=== PATIENT | female | born 1965 | race Caucasian/White ===

== ENCOUNTER 2021-08-09 10:32 | Day surgery (SDC) | payer OTHER, SELFPAY ==
[2021-08-09] VITALS (7 sets, daily range): BP systolic 115–144; BP diastolic 70–89; PULSE 63–86; RESP 16–18; TEMP 36.1–37.3; O2SAT 95–99; BMI 42.8
[2021-08-09] MEDS: Cefazolin 2 GM in 0.9% Normal Saline 100 ML IV (10:39)
--- NOTE | 2021-08-09 11:23 | PCM.DC ---
Discharge Instructions Diet Discharge Diet: No restrictions Activity Discharge Activity: Return to Normal Activity and May Shower Dressing / Incision Call your doctor if you observe: Fever of 101 or Higher, Inability to urinate and Inability to have a bowel movement Follow Up Care Please Follow Up With: Zenaida Mueller MD When: call for appt Test Results: Test results from this visit will be discussed in further detail at your follow-up appointment, if applicable. Discharge Plan Admission Attending Provider: Zenaida Mueller Primary Care Provider: Arturo Steele Discharge Orders/Prescriptions Prescriptions: New oxycodone-acetaminophen [oxycodone-acetaminophen] 1 TABLET tablet 2 tab PO Q8H PRN PRN (Reason: Pain) 7 Days Qty: 20 RF: 0 Continued hydrochlorothiazide 25 MG tablet 25 mg PO DAILY RF: 0 lisinopril 40 MG tablet 40 mg PO DAILY RF: 0 ondansetron HCl 4 mg Tablet 4 mg PO Q8H PRN (Reason: Nausea) RF: 0 ketorolac 10 mg Tablet 10 mg PO Q8H PRN (Reason: Pain) RF: 0 oxycodone-acetaminophen 5-325 mg Tablet 1 tab PO Q6H PRN (Reason: Pain) RF: 0 tamsulosin 0.4 mg Capsule 0.4 mg PO DAILY RF: 0 biotin 10,000 mcg Capsule 10,000 mcg PO DAILY RF: 0 metronidazole 0.75 % Cream 1 applic TOPICAL BID RF: 0 pravastatin 20 mg Tablet 20 mg PO DAILY RF: 0 Zyrtec 10 mg Capsule 10 mg PO DAILY RF: 0 Farxiga 10 mg Tablet 10 mg PO DAILY RF: 0 Referrals / Follow Up: Arturo Steele MD [Primary Care Provider] - Disposition Disposition (needs filled in before D/C Order can be placed): Home, Self Care
--- NOTE | 2021-08-09 11:25 | PCM.OPRPT ---
Problems Associated Problem List Diagnoses (1) Hydronephrosis: (2) Left ureteral calculus: Report of Operation Date of Procedure: 08/09/21 Pre-Operative Diagnosis: Left ureteral calculus with hydronephrosis Post-Operative Diagnosis: Same Surgery/Procedure Performed:: Cystoscopy, left ureteroscopy, holmium laser lithotripsy, stone basket extraction, left ureteral stent insertion Surgeon: Zenaida Mueller Type of Anesthesia: General Description of Procedure: The patient is a 56-year-old female who was diagnosed with a left ureteral calculus and hydronephrosis approximately 1 week ago in the emergency room. She now presents for definitive surgical intervention. Informed consent was obtained. The patient was taken to the operating room and placed on the operating room table. Anesthesia monitored the head, neck, airway, IV access and vital signs throughout the case. Once anesthesia was appropriate ministered the patient was placed into dorsal lithotomy position was prepped and draped in usual sterile fashion. The cystoscope was inserted through the urethra under direct visualization into the urinary bladder. The bladder mucosa was visualized in its entirety and found to be without evidence of mass, ulceration, erythema or foreign body. Both orifices were located in the correct anatomic position on the trigone. The left ureteral orifice was intubated with 8.035 Glidewire followed by a second Glidewire. These were visualized within the renal pelvis on fluoroscopy. The flexible ureteroscope was then passed over one of the wires into the left ureter. The stone was identified. The 270 ?m laser fiber was used to break the stone into small pieces which were removed with a stone basket. At the conclusion of the case, a 6 x 26 JJ stent was placed over the remaining Glidewire. Good curling was achieved in the renal pelvis as well as the urinary bladder. At this time the patient's bladder was emptied and the case was terminated. The patient tolerated the procedure well and was taken to the recovery room in good condition. There were no complications during this procedure. Grafts/Implants Used: 6 x 26 JJ stent Complications None Admit VTE Documentation VTE Present on Admission: Yes VTE Mechan Device Prophylaxis: SCD's VTE Pharm Prophylaxis ordered?: No Reason prophylaxis not ordered:: Treatment Not Indicated
[2021-08-09] MEDS: Lactated Ringers 1,000 ML 999 ML IV (11:27)
[2021-08-09 11:35] LABS: Bedside Glucose 165 mg/dL (74-106)
--- NOTE | 2021-08-09 12:15 | CALC_PTH ---
PATIENT: PATRIZIA HEATH [place]: [facility] [place][id number] AGE/SX: 56/F ROOM: RE08/09/[address]: Dr. Zenaida Mueller MD : [id number] BED: DIS: 08/09/2021 SPEC #: [id number] RECD: 08/09/21 13:29 STATUS: GARRETT ODEN #: [id number] SELINA: 08/09/21 12:[address]: Zenaida Mueller DEPT: SURGICAL PATHOLOGY RECD BY: Nan Rogers ENTERED: 08/12/21 10:26 SP TYPE: Calculi OTHR DR: Dr. Arturo Steele MD Tissues: CALCULI Procedures: Surgery Specimen Level I HEADER OPERATION: Cysto, ureteroscopy, laser, stent PRE-OP DIAGNOSIS: Left ureteral calculi, hydronephrosis TISSUE SUBMITTED: Left ureteral calculi GROSS DIAGNOSIS Left ureteral calculi, removal: Fragments of unremarkable calculi (gross diagnosis only). AM:xavier 08/13/2021 COMMENT If chemical analysis is requested on this specimen, please notify the laboratory. Case has been reviewed in consultation with Dr. Carbajal who concurs with the above diagnosis. IDC:SJ GROSS DESCRIPTION Received without fixative labeled with the patient's name and designated left ureteral calculi. The specimen consists of three irregular fragments of dark chao calculi measuring in aggregate 0.5 x 0.2 x 0.1 cm. The entire specimen is saved if stone analysis is requested. / AM:xavier 08/12/2021 CPT: 39022
[2021-08-09] MEDS: Lactated Ringers 1,000 ML 30 ML IV (13:00)
[2021-08-09 13:21] LABS: Bedside Glucose 137 mg/dL (74-106)
[2021-08-09] MEDS: Acetaminophen 325 MG Tablet PO (14:30)
[2021-08-09] MEDS: oxyCODONE 5 MG Tablet PO (14:30)
== END 2021-08-09 23:59 | disposition home or self-care (01) ==
LOC: SDC 10:36 → AC 10:38
PROVIDERS: PCP Family Medicine; Referring Provider Urology; Visit Provider Urology
PROC: 0TJ98ZZ Inspection of Ureter, Via Natural or Artificial Opening Endoscopic (ICD-10-PCS; CPT 52352; principal; 2021-08-09 12:05)
DX: N13.2 Hydronephrosis with renal and ureteral calculous obstruction (principal); E11.9 Type 2 diabetes mellitus without complications; J45.909 Unspecified asthma, uncomplicated; Z79.899 Other long term (current) drug therapy; F41.9 Anxiety disorder, unspecified; K76.0 Fatty (change of) liver, not elsewhere classified; E78.00 Pure hypercholesterolemia, unspecified; Z85.828 Personal history of other malignant neoplasm of skin; I10 Essential (primary) hypertension
CPT/HCPCS: 52356; 00873; 76000; 82962; 87426; 88300; J7120; C2617

== ENCOUNTER 2021-08-15 14:30 | Outpatient (CLI) | payer OTHER, SELFPAY ==
--- NOTE | 2021-08-15 14:36 | CT_ITS ---
STUDY: CT ABDOMEN AND PELVIS WITHOUT CONTRAST REASON FOR EXAM: Female, 56 years old. FLANK PAIN. Known kidney stones. RADIATION DOSAGE (If Supplied By Facility): CTDIvol = ( 23.62 ) mGy, DLP = ( 1256.84 ) mGycm TECHNIQUE: Transaxial images were obtained from the dome of the diaphragm to the symphysis pubis without oral contrast, and without intravenous contrast. Sagittal and coronal images were reconstructed. Individualized dose optimization techniques were used for this CT. COMPARISON: None. FINDINGS: The visualized lung bases are unremarkable. The visualized portions of the heart are within normal limits. Normal liver. There are surgical clips in the gallbladder fossa consistent with a prior cholecystectomy. Normal spleen. Normal pancreas. Normal bilateral adrenal glands. There is a 5.4 mm calculus in the midpole calyx of the right kidney. There is a mild degree of left hydronephrosis with left perinephric and periureteric stranding due to a 3 mm x 5.6 mm calculus in the proximal portion of the left ureter. A 5.2 mm nonobstructive calculus in the lower pole calyx of the left kidney. There is a small hiatal hernia. Normal small intestine. Normal colon. The appendix is visualized and appears normal. There is scattered atherosclerotic calcification of the abdominal aorta, without a demonstrated aneurysm. Normal inferior vena cava. Normal retroperitoneum. Normal urinary bladder. Normal abdominal wall. There are degenerative changes of the visualized lumbar spine. CT/Abdomen/Pelvis without Cont IMPRESSION: 3 mm x 5.6 mm calculus in the proximal left ureter causing mild degree of left hydronephrosis and perinephric and periureteric stranding. Nonobstructive bilateral intrarenal calculi. Electronically Signed: Kevyn Chase MD at 15:09 EDT ,
== END 2021-08-15 23:59 | disposition home or self-care (01) ==
LOC: CT 14:32
PROVIDERS: PCP Family Medicine; Visit Provider Urology
DX: N20.0 Calculus of kidney (principal); R10.9 Unspecified abdominal pain
CPT/HCPCS: 74176

== ENCOUNTER 2021-08-27 08:47 | Day surgery (SDC) | payer OTHER, SELFPAY ==
[2021-08-27] VITALS (8 sets, daily range): BP systolic 120–142; BP diastolic 66–90; PULSE 57–84; RESP 16–18; TEMP 36.2–36.6; O2SAT 96–99; BMI 42.4
[2021-08-27 09:40] LABS: Bedside Glucose 173 mg/dL (74-106)
[2021-08-27] MEDS: Lactated Ringers 1,000 ML 15 ML IV ×2 (09:54→12:20)
--- NOTE | 2021-08-27 11:30 | PCM.OPRPT ---
Problems Associated Problem List Diagnoses (1) Bilateral renal stones: (2) Left ureteral calculus: Report of Operation Date of Procedure: 08/27/21 Pre-Operative Diagnosis: Bilateral renal calculus, left ureteral calculus Post-Operative Diagnosis: Bilateral renal stones, passed left ureteral calculus Surgery/Procedure Performed:: Cystoscopy with left retrograde pyelogram, left ureteroscopy, laser lithotripsy with stone basket extraction and left ureteral stent insertion, right renal extracorporal shockwave lithotripsy Surgeon: Zenaida Mueller Type of Anesthesia: General Description of Procedure: The patient is a 56-year-old female who presents for right extracorporal shockwave lithotripsy of a kidney stone. She has been passing a left ureteral stone and still has a left renal calculus in place as well. She was consented for management of the left ureteral calculus. She was taken to the operating room placed on the operating room table. Anesthesia monitored the head, neck, airway, IV access and vital signs throughout the case. Once anesthesia was appropriately administered the patient was placed into dorsal lithotomy position was prepped and draped in usual sterile fashion. The cystoscope was inserted through the urethra under direct visualization into the urinary bladder which was normal. There was no foreign body within the urinary bladder. The left ureteral orifice was gently intubated with an 8 Georgian cone-tip catheter and contrast was injected in retrograde fashion. Under fluoroscopic visualization there is a question of a filling defect in the proximal left ureter. Using a flexible ureteroscope and a 0.035 glide safety wire, a left ureteroscopy revealed mucous at the area of a left ureteral narrowing. There was no ureteral calculus identified. The scope was inserted all the way up to the kidney where a stone was located grasped with a basket, and brought into the ureteral orifice. It was then lasered into small pieces which were removed. These pieces were too small for further evaluation. At this time, when no further fragments were seen, the safety wire was used for placement of a 6 Georgian 26 cm JJ stent which curled well in the renal pelvis as well as the urinary bladder. At this time the patient was taken out of dorsolithotomy position and the right renal stone was shocked with 3000 shocks. It appeared to be well fragmented at the conclusion of the case. The patient was then awakened and taken to the recovery room in good condition. There were no complications during this procedure. Grafts/Implants Used: Left 6 x 26 JJ stent Complications None Admit VTE Documentation VTE Present on Admission: No VTE Mechan Device Prophylaxis: SCD's VTE Pharm Prophylaxis ordered?: No Reason prophylaxis not ordered:: Treatment Not Indicated
--- NOTE | 2021-08-27 11:34 | PCM.DC ---
Discharge Instructions Diet Discharge Diet: No restrictions Activity Discharge Activity: Return to Normal Activity May resume sexual activity in: No Restrictions Dressing / Incision Call your doctor if you observe: Fever of 101 or Higher, Inability to urinate and Inability to have a bowel movement Follow Up Care Please Follow Up With: Zenaida Mueller MD When: Thursday for stent removal Test Results: Test results from this visit will be discussed in further detail at your follow-up appointment, if applicable. Discharge Plan Admission Attending Provider: Zenaida Mueller Primary Care Provider: Arturo Steele Discharge Orders/Prescriptions Prescriptions: New phenazopyridine [Pyridium] 200 MG tablet 200 mg PO TID PRN PRN (Reason: Bladder Spasms) 7 Days Qty: 30 RF: 0 cephalexin [cephalexin] 500 MG capsule 500 mg PO Q12 3 Days Qty: 6 RF: 0 oxycodone-acetaminophen 10-325 mg tablet 2 tab PO Q8H PRN (Reason: pain) 3 Days Qty: 14 RF: 0 Continued hydrochlorothiazide 25 MG tablet 25 mg PO DAILY RF: 0 lisinopril 40 MG tablet 40 mg PO DAILY RF: 0 ondansetron HCl 4 mg Tablet 4 mg PO Q8H PRN (Reason: Nausea) RF: 0 ketorolac 10 mg Tablet 10 mg PO Q8H PRN (Reason: Pain) RF: 0 oxycodone-acetaminophen 5-325 mg Tablet 1 tab PO Q6H PRN (Reason: Pain) RF: 0 tamsulosin 0.4 mg Capsule 0.4 mg PO DAILY RF: 0 biotin 10,000 mcg Capsule 10,000 mcg PO DAILY RF: 0 metronidazole 0.75 % Cream 1 applic TOPICAL BID RF: 0 pravastatin 20 mg Tablet 20 mg PO DAILY RF: 0 Zyrtec 10 mg Capsule 10 mg PO DAILY RF: 0 Farxiga 10 mg Tablet 10 mg PO DAILY RF: 0 oxycodone-acetaminophen 1 TABLET tablet 2 tab PO Q8H PRN PRN (Reason: Pain) 7 Days Qty: 20 RF: 0 Referrals / Follow Up: Arturo Steele MD [Primary Care Provider] - Disposition Disposition (needs filled in before D/C Order can be placed): Home, Self Care
[2021-08-27] MEDS: Acetaminophen 325 MG Tablet 650 MG PO (13:47)
[2021-08-27] MEDS: oxyCODONE 5 MG Tablet 10 MG PO (13:47)
== END 2021-08-27 23:59 | disposition home or self-care (01) ==
LOC: SDC 08:49 → AC 08:54
PROVIDERS: PCP Family Medicine; Visit Provider Urology
PROC: (CPT 50590; principal; 2021-08-27 10:00)
DX: N13.2 Hydronephrosis with renal and ureteral calculous obstruction (principal); E11.9 Type 2 diabetes mellitus without complications; J45.909 Unspecified asthma, uncomplicated; F41.9 Anxiety disorder, unspecified; K76.0 Fatty (change of) liver, not elsewhere classified; E78.00 Pure hypercholesterolemia, unspecified; Z85.828 Personal history of other malignant neoplasm of skin; I10 Essential (primary) hypertension; Z79.899 Other long term (current) drug therapy
CPT/HCPCS: 52356; 82962; 87426; J7120; C2617; J2405

== ENCOUNTER 2021-08-29 14:22 | Observation (INO) | payer OTHER, SELFPAY ==
[2021-08-29 14:22] VITALS: BP 152/61; PULSE 64; RESP 16; TEMP 36.4; O2SAT 98; BMI 41.5
--- NOTE | 2021-08-29 15:03 | EX.ED.DYSGE1 ---
HPI History of Present Illness Chief Complaint: Flank Pain Detail of Chief Complaint: Right flank pain with nausea Informant: patient Onset/Context/Timing Onset: Yesterday Context: Sudden Onset Timing: Continuous Quality: Pain Location: Right flank Current Severity: Severe Maximum Severity: Severe Worsened by: Nothing Relieved by: Nothing Associated Symptoms Associated Symptoms: Nausea and chills when the pain got worse Narrative Narrative: Patient is a 56-year-old woman with history of hypertension, hyperlipidemia and diabetes who presents with right flank pain. She underwent lithotripsy on the right and had a ureteral stent placed on the left. She presents with severe left right flank pain without radiation. She does report nausea without vomiting. She does report urgency no dysuria or hematuria. She denies fever. She denies HEENT symptoms. She denies cardiac or respiratory symptoms. She denies history of renal disease due to her diabetes. She states the pain has not improved even though she has maximized her dose of Percocet. She states she was sent in by Dr. Zenaida Shah. Patient had 6 to 8 ounces of water at 1400. She had a sip of water at 1500. She has not had any to eat since last evening. Prior similar symptoms: Yes Recent Illness/Hospitalization: Yes (Surgery August 27) [facility] Medical History Alcohol use Anxiety Arthritis Asthma Back pain Bilateral renal stones Cancer Diabetes Dietary restriction Fatty liver Headache Heartburn High cholesterol History of deviated nasal septum History of edema History of irregular heartbeat Hx of basal cell carcinoma Hydronephrosis Hypertension Left ureteral calculus Low iron Non-smoker Shortness of breath on exertion Syncope Wears glasses Home Medications hydrochlorothiazide 25 mg PO DAILY 04/10/16 [History Last Taken 08/26/21] lisinopril 40 mg PO DAILY 04/10/16 [History Last Taken 08/27/21] Farxiga 10 mg PO DAILY 08/08/21 [History Last Taken 08/26/21] Zyrtec 10 mg PO DAILY 08/08/21 [History Last Taken 08/26/21] biotin 10,000 mcg PO DAILY 08/08/21 [History Last Taken 08/26/21] ketorolac 10 mg PO Q8H PRN 08/08/21 [History Last Taken 08/26/21] metronidazole 1 applic TOPICAL BID 08/08/21 [History Last Taken 08/26/21] ondansetron HCl 4 mg PO Q8H PRN 08/08/21 [History Last Taken 08/26/21] oxycodone-acetaminophen 1 tab PO Q6H PRN 08/08/21 [History Last Taken 08/26/21] pravastatin 20 mg PO DAILY 08/08/21 [History Last Taken 08/26/21] tamsulosin 0.4 mg PO DAILY 08/08/21 [History Last Taken 08/26/21] oxycodone-acetaminophen 2 tab PO Q8H PRN PRN 7 Days #20 tab 08/09/21 [Rx Last Taken 08/26/21] cephalexin 500 mg PO Q12 3 Days #6 capsule 08/27/21 [Rx Last Taken Unknown] oxycodone-acetaminophen 2 tab PO Q8H PRN 3 Days #14 tab 08/27/21 [Rx Last Taken Unknown] phenazopyridine [Pyridium] 200 mg PO TID PRN PRN 7 Days #30 tab 08/27/21 [Rx Last Taken Unknown] Allergy/AdvReac Type Severity Reaction Status Date / Time Penicillins Allergy Rash Verified 08/29/21 14:48 adhesive tape AdvReac Sensitivity, Verified 08/29/21 14:48 Redness, Sore Surgical History Hx of breast implant Hx of cystoscopy Hx of hysterectomy, total Hx of resection of small bowel Social History (Updated 08/29/21 @ 15:[address] Angel Parr MD) household members: spouse Smoking Status: Never smoker substance use type: does not use ROS ROS ED Constitutional Constitutional ED: Reports chills; Denies fever(s), subjective or sweats Eyes Eyes: Denies blurry vision or change in vision ENT ENT ED: Denies ear pain, rhinorrhea or sore throat Cardiovascular Cardiovascular: Denies chest pain or palpitations Respiratory/Chest Respiratory/Chest: Denies cough, dyspnea or dyspnea on exertion Gastrointestinal Gastrointestinal: Reports nausea; Denies abdominal pain, constipation, diarrhea or vomiting Genitourinary Genitourinary ED: Denies dysuria, hematuria or urinary frequency Musculoskeletal Musculoskeletal: Reports back pain; Denies arthralgias, myalgias or neck pain Integumentary Denies Abrasions or rash Neurologic Neurologic: Denies paresthesias or weakness Endocrine Endocrinology: Denies polydipsia, polyphagia or polyuria EXAM Physical Exam Const Vital Signs: 08/29/21 14:22 Temperature 97.6 F L Temperature Source Temporal Pulse Rate 64 Respiratory Rate 16 Blood Pressure 152/61 H Blood Pressure Mean 91 Pulse Ox 98 Oxygen Delivery Method Room Air Patient appears uncomfortable. Positive well nourished, well developed and obese General Appearance ED: well developed and pallor; Negative for cyanotic, diaphoretic or NAD Nutritional Appearance: obese HEENT Reports moist mucous membranes Negative for trauma or tenderness Eyes PERRL and EOMs intact bilaterally General Eye ED: Negative for pale conjunctiva or scleral icterus Neck no lymphadenopathy, supple and no JVD Chest Wall inspection of chest normal and palpation of chest normal Resp normal respiratory effort and clear to auscultation bilaterally Effort and Inspection: Negative for pain with movement Cardio regular rate, regular rhythm, S1 normal heart sound, S2 normal heart sound and no murmurs GI normal to inspection, nondistended, normoactive bowel sounds, non-tender and non-distended Auscultation: normoactive bowel sounds Palpation: soft Back/Spine no CVA tenderness Cervical Spine: Negative for cervical spine tenderness Thoracic Spine / Upper Back: paraspinal muscle tenderness; Negative for thoracic spinal tenderness Lumbar Spine / Lower Back: Negative for lumbar spinal tenderness Extremity normal to inspection General Extremety ED: Negative for edema or tenderness General Extremity: Negative for edema Neuro oriented x3 and CN's II-XII intact bilaterally Sensorium / Orientation: alert Psych mental status grossly normal Skin no rashes or lesions noted, no wounds and skin turgor normal General Skin Exam: pallor; Negative for jaundice MDM MDM MDM Narrative Medical decision making narrative: Patient with flank pain status post lithotripsy. Suspect obstructing ureteral stone. Patient was medicated with Toradol and morphine for pain and Zofran for nausea. Since she has not had a recent electrolyte panel with a BUN and creatinine one was ordered as well as CBC since she reported chills. Call was placed to Dr. Zenaida Richter. Patient states the medicine she received took the edge off. She still having discomfort. CAT scan is remarkable for a 2 mm mid right ureteral stone with hydroureter hydronephrosis. Lab Data Attestation: I reviewed the patient's lab results. Lab results narrative: White count is slightly elevated with no bandemia. This is insignificant. This could be due to pain. Basic metabolic panel is remarkable for glucose of 180. CO2 anion gap is normal. There is mild hypokalemia with potassium of 3.1. Labs: Laboratory Results - last 24 hr 08/29/21 08/29/21 08/29/21 14:50 14:50 15:55 WBC 11.8 H RBC 4.90 Hgb 13.9 Hct 42.7 MCV 87.1 MCH 28.4 MCHC 32.6 RDW Std Deviation 40.6 RDW Coeff of Gerald 12.9 Plt Count 179 MPV 12.3 H Immature Gran % (Auto) 0.800 Neut % (Auto) 70.7 H Lymph % (Auto) 18.8 L [place] % (Auto) 7.7 Eos % (Auto) 1.4 Baso % (Auto) 0.6 Absolute Neuts (auto) 8.3 H Absolute Lymphs (auto) 2.21 Nucleated RBC % 0 Sodium 139 Potassium 3.1 L Chloride 105 Carbon Dioxide 28.0 Anion Gap 6 BUN 21 H Creatinine 1.01 Estim Creat Clear Calc 61.92 Est GFR (MDRD) Af Amer 73 Est GFR (MDRD) Non-Af 61 BUN/Creatinine Ratio 20.8 H Glucose 180 H Calcium 8.9 Urine Color Magali Urine Clarity Clear Urine pH 5.0 Ur Specific [place] 1.015 Urine Protein 30 H Urine Glucose (UA) 250 H Urine Ketones 50 H Urine Occult Blood 250 H Urine Nitrite Positive H Urine Bilirubin 3 H Urine Urobilinogen 4 H Ur Leukocyte Esterase 100 H Radiography Diagnostic Testing: Clinical Impression(s) from Imaging Studies Abdomen/Pelvis CT 08/29/21 15:26 IMPRESSION: 1. New mild right hydronephrosis. 2 mm mid right ureter calculus, new. 2. Left ureteric stent. Resolution of left hydronephrosis. Electronically Signed: Jevon Bass MD ([place]) at 15:56 EDT , Discharge Plan Triage Chief Complaint: Flank Pain ED Provider: Angel Parr Dx/Rx/DC Orders Clinical Impression: Hydronephrosis concurrent with and due to calculi of kidney and ureter, Bilateral renal stones Prescriptions: No Action hydrochlorothiazide 25 MG tablet 25 mg PO DAILY RF: 0 lisinopril 40 MG tablet 40 mg PO DAILY RF: 0 ondansetron HCl 4 mg Tablet 4 mg PO Q8H PRN (Reason: Nausea) RF: 0 ketorolac 10 mg Tablet 10 mg PO Q8H PRN (Reason: Pain) RF: 0 oxycodone-acetaminophen 5-325 mg Tablet 1 tab PO Q6H PRN (Reason: Pain) RF: 0 tamsulosin 0.4 mg Capsule 0.4 mg PO DAILY RF: 0 biotin 10,000 mcg Capsule 10,000 mcg PO DAILY RF: 0 metronidazole 0.75 % Cream 1 applic TOPICAL BID RF: 0 pravastatin 20 mg Tablet 20 mg PO DAILY RF: 0 Zyrtec 10 mg Capsule 10 mg PO DAILY RF: 0 Farxiga 10 mg Tablet 10 mg PO DAILY RF: 0 oxycodone-acetaminophen 1 TABLET tablet 2 tab PO Q8H PRN PRN (Reason: Pain) 7 Days Qty: 20 RF: 0 phenazopyridine [Pyridium] 200 MG tablet 200 mg PO TID PRN PRN (Reason: Bladder Spasms) 7 Days Qty: 30 RF: 0 cephalexin [cephalexin] 500 MG capsule 500 mg PO Q12 3 Days Qty: 6 RF: 0 oxycodone-acetaminophen 10-325 mg tablet 2 tab PO Q8H PRN (Reason: pain) 3 Days Qty: 14 RF: 0 Primary Care Provider: Arturo Steele Referrals: Arturo Steele MD [Primary Care Provider] - Disposition Disposition: Acute Care [facility]
[2021-08-29] MEDS: Ondansetron 4 MG/2 ML Vial IV ×2 (15:15→17:52)
[2021-08-29] MEDS: Ketorolac 15 MG/ML Vial IV (15:15)
[2021-08-29] MEDS: Morphine 4 MG/ML Syringe IV ×3 (15:16→17:52)
[2021-08-29] MEDS: 0.9% Normal Saline 1,000 ML 250 ML IV (15:20)
--- NOTE | 2021-08-29 15:26 | CT_ITS ---
STUDY: CT ABDOMEN AND PELVIS WITHOUT CONTRAST REASON FOR EXAM: Female, 56 years old. Right flank pain RADIATION DOSAGE (If Supplied By Facility): CTDIvol = ( 23.65 ) mGy, DLP = ( 1276.51 ) mGycm TECHNIQUE: Transaxial images were obtained from the dome of the diaphragm to the symphysis pubis without oral contrast, and without intravenous contrast. Sagittal and coronal images were reconstructed. Individualized dose optimization techniques were used for this CT. COMPARISON: 08/15/2021 FINDINGS: Left breast implant partially visualized. The visualized portions of the heart are within normal limits. Normal liver. There are surgical clips in the gallbladder fossa consistent with a prior cholecystectomy. Normal spleen. Normal pancreas. Normal bilateral adrenal glands. 2 calculi of the right collecting system on image 72 of series 2. Mild right hydronephrosis with a 2 mm calculus of the right mid ureter on image 101 of series 2 (L5 level). Left ureter stent has been placed in satisfactory position. Small left renal calculi again demonstrated. Normal visualized stomach. Normal small intestine. Normal colon. There is non-visualization of the appendix. Normal abdominal aorta. Normal inferior vena cava. Normal retroperitoneum. Small amount of air in the urinary bladder. No bladder wall thickening. There is absence of the uterus consistent with a prior hysterectomy. Normal abdominal wall. Normal osseous structures. CT/Abdomen/Pelvis without Cont IMPRESSION: 1. New mild right hydronephrosis. 2 mm mid right ureter calculus, new. 2. Left ureteric stent. Resolution of left hydronephrosis. Electronically Signed: Jevon Bass MD ([place]) at 15:56 EDT ,
[2021-08-29 15:30] LABS: Absolute Lymphocyte Count 2.21 X10^3/uL (0.83-4.51); Absolute Neutrophil Count 8.3 X10^3/uL (2.0-7.7); Basophil# 0.07 X10^3/uL; Basophil% 0.6 % (0-1); Eosinophil# 0.17 X10^3/uL; Eosinophils% 1.4 % (0-5); Hematocrit 42.7 % (37-47); Hemoglobin 13.9 g/dL (12.0-15.0); Lymphocyte # 2.21 X10^3/ul (0.83-4.51); Lymphocyte % 18.8 % (19-41); Mean Corp Hgb Conc 32.6 g/dL (32-36); Mean Corpuscular Hgb 28.4 pg (27.0-32.0); Mean Corpuscular Volume 87.1 fL (81-99); Mean Platelet Vol. 12.3 fl (6.2-12.0); Monocyte# 0.91 X10^3/uL; Monocyte% 7.7 % (0-10); NRBC Flagged by Analyzer 0 % (0-5); Neutrophil % 70.7 % (47-70); Platelet Count 179 K/mm3 (150-450); RBC Distribution Width CV 12.9 % (11.6-14.6); RBC Distribution Width SD 40.6 fl (35.1-43.9); White Blood Count 11.8 K/mm3 (4.4-11.0)
[2021-08-29 15:49] LABS: Anion Gap 6 (5-15); BUN 21 mg/dL (7-18); BUN/Creat Ratio 20.8 RATIO (10-20); Calcium,Total 8.9 mg/dL (8.5-10.1); Chloride 105 mmol/L (98-107); Creatinine, Serum 1.01 mg/dL (0.55-1.02); EST Glomerular Filtration Rate 61 mL/min (>60); Est Glom Filt Rate - Afr Amer 73 mL/min (>60); Estimated Creatinine Clearance 61.92 ml/min; Glucose 180 mg/dL (74-106); Potassium 3.1 mmol/L (3.5-5.1); Sodium Level 139 mmol/L (136-145)
[2021-08-29 16:08] LABS: Mucous, Urine 0 SEEN /hpf (<or=2+)
[2021-08-29 16:09] LABS: Color, Urine Amber (Yellow); Glucose, Dipstick 250 mg/dl (Normal); Ketone-Dipstick 50 mg/dl (Negative); Leukocyte Esterase-Dipstick 100 /ul (Negative); Nitrite-Dipstick Positive (Negative); Occult Blood-Urine 250 /ul (Negative); Protein-Dipstick 30 mg/dl (Negative); Specific Gravity, Urine 1.015 (1.002-1.030); Urine Clarity Clear (Clear); Urine Urobilinogen 4 mg/dl (Normal)
[2021-08-29 16:10] LABS: Urine Bilirubin Dipstick 3 mg/dL (Negative)
[2021-08-29 16:17] LABS: White Blood Cells 10-25 SEEN /hpf (0-5)
[2021-08-29 16:18] LABS: Red Blood Cells-Urine 50-100 SEEN /hpf (0-5); Squamous Epithelial Cells - UA 0-5 SEEN /hpf (5-10)
[2021-08-29 16:19] VITALS: BP 147/71; PULSE 73; RESP 16; TEMP 36.6; O2SAT 98
[2021-08-29 16:21] LABS: Bacteria 1+ /hpf (None Seen); Fine Granular Cast- Urine 0-5 SEEN /lpf (0-5); Hyaline Cast 0-5 SEEN /lpf (0-5)
[2021-08-29 17:11] VITALS: BMI 42.7
[2021-08-29 17:14] VITALS: BP 143/81; PULSE 76; RESP 18; TEMP 36.8; O2SAT 95
[2021-08-29 18:06] LABS: Bedside Glucose 157 mg/dL (74-106)
[2021-08-29] MEDS: Ceftriaxone 1 GM/50 ML BAG IV (19:07)
[2021-08-29] MEDS: Ketorolac 30 MG/ML Syringe IV (21:34)
[2021-08-29] MEDS: Lactated Ringers 1,000 ML 125 ML IV (21:36)
[2021-08-29] MEDS: Docusate Sodium 100 MG Capsule PO (21:40)
[2021-08-29 23:00] VITALS: BP 100/66; PULSE 64; RESP 16; TEMP 36.9; O2SAT 95
[2021-08-29 23:11] VITALS: RESP 16
[2021-08-30 05:00] VITALS: BP 131/92; PULSE 78; RESP 16; TEMP 36.6
[2021-08-30 05:56] LABS: Absolute Lymphocyte Count 3.05 X10^3/uL (0.83-4.51); Absolute Neutrophil Count 3.2 X10^3/uL (2.0-7.7); Basophil# 0.05 X10^3/uL; Basophil% 0.7 % (0-1); Eosinophil# 0.35 X10^3/uL; Eosinophils% 4.9 % (0-5); Hematocrit 38.1 % (37-47); Hemoglobin 12.4 g/dL (12.0-15.0); Lymphocyte # 3.05 X10^3/ul (0.83-4.51); Lymphocyte % 42.4 % (19-41); Mean Corp Hgb Conc 32.5 g/dL (32-36); Mean Corpuscular Hgb 28.1 pg (27.0-32.0); Mean Corpuscular Volume 86.2 fL (81-99); Mean Platelet Vol. 12.2 fl (6.2-12.0); Monocyte# 0.56 X10^3/uL; Monocyte% 7.8 % (0-10); NRBC Flagged by Analyzer 0 % (0-5); Neutrophil # 3.16 X10^3/uL (2.7-7.7); Neutrophil % 43.8 % (47-70); Platelet Count 167 K/mm3 (150-450); RBC Distribution Width CV 12.9 % (11.6-14.6); Red Blood Count 4.42 M/mm3 (4.2-5.4); White Blood Count 7.2 K/mm3 (4.4-11.0)
[2021-08-30 06:21] LABS: Anion Gap 5 (5-15); BUN 20 mg/dL (7-18); BUN/Creat Ratio 33.1 RATIO (10-20); Calcium,Total 8.5 mg/dL (8.5-10.1); Chloride 106 mmol/L (98-107); EST Glomerular Filtration Rate 110 mL/min (>60); Est Glom Filt Rate - Afr Amer 133 mL/min (>60); Estimated Creatinine Clearance 104.24 ml/min; Glucose 133 mg/dL (74-106); Potassium 3.2 mmol/L (3.5-5.1); Sodium Level 139 mmol/L (136-145)
--- NOTE | 2021-08-30 08:01 | PCM.DC ---
Discharge Instructions Diet Discharge Diet: No restrictions Activity Discharge Activity: Return to Normal Activity Dressing / Incision Call your doctor if you observe: Fever of 101 or Higher, Inability to urinate and Inability to have a bowel movement Follow Up Care Please Follow Up With: Zenadia Mueller MD When: today in the office for stent removal Test Results: Test results from this visit will be discussed in further detail at your follow-up appointment, if applicable. Discharge Plan Admission Admit Date/Time: 08/29/21 16:39 Attending Provider: Zenaida Mueller Primary Care Provider: Arturo Steele Discharge Orders/Prescriptions Prescriptions: No Action hydrochlorothiazide 25 MG tablet 25 mg PO DAILY RF: 0 lisinopril 40 MG tablet 40 mg PO DAILY RF: 0 ondansetron HCl 4 mg Tablet 4 mg PO Q8H PRN (Reason: Nausea) RF: 0 biotin 10,000 mcg Capsule 10,000 mcg PO DAILY RF: 0 metronidazole 0.75 % Cream 1 applic TOPICAL BID RF: 0 pravastatin 20 mg Tablet 20 mg PO DAILY RF: 0 Zyrtec 10 mg Capsule 10 mg PO DAILY RF: 0 Farxiga 10 mg Tablet 10 mg PO DAILY RF: 0 phenazopyridine [Pyridium] 200 MG tablet 200 mg PO TID PRN PRN (Reason: Bladder Spasms) 7 Days Qty: 30 RF: 0 cephalexin [cephalexin] 500 MG capsule 500 mg PO Q12 3 Days Qty: 6 RF: 0 oxycodone-acetaminophen 10-325 mg tablet 1.5 tab PO Q6H PRN PRN (Reason: pain) RF: 0 Referrals / Follow Up: Arturo Steele MD [Primary Care Provider] - Disposition Disposition (needs filled in before D/C Order can be placed): Home, Self Care
--- NOTE | 2021-08-30 08:04 | HP.PCM_ITS ---
HPI - General General Date of Admission: 08/29/21 HPI Narrative PATRIZIA HEATH, is a 56 F who presents with right flank pain after extracorporeal shockwave lithotripsy. No fever or chills. [facility]LY [facility] Medical History Alcohol use Anxiety Arthritis Asthma Back pain Bilateral renal stones Cancer Diabetes Dietary restriction Fatty liver Headache Heartburn High cholesterol History of deviated nasal septum History of edema History of irregular heartbeat Hx of basal cell carcinoma Hydronephrosis Hypertension Left ureteral calculus Low iron Non-smoker Shortness of breath on exertion Syncope Wears glasses Home Medications hydrochlorothiazide 25 mg PO DAILY 04/10/16 [History Last Taken 08/29/21] lisinopril 40 mg PO DAILY 04/10/16 [History Last Taken 08/29/21] Farxiga 10 mg PO DAILY 08/08/21 [History Last Taken 08/29/21] Zyrtec 10 mg PO DAILY 08/08/21 [History Last Taken 08/29/21] biotin 10,000 mcg PO DAILY 08/08/21 [History Last Taken 08/29/21] metronidazole 1 applic TOPICAL BID 08/08/21 [History Last Taken 08/29/21] ondansetron HCl 4 mg PO Q8H PRN 08/08/21 [History Last Taken 08/29/21] pravastatin 20 mg PO DAILY 08/08/21 [History Last Taken 08/29/21] cephalexin 500 mg PO Q12 3 Days #6 capsule 08/27/21 [Rx Last Taken 08/29/21] phenazopyridine [Pyridium] 200 mg PO TID PRN PRN 7 Days #30 tab 08/27/21 [Rx Last Taken 08/29/21] oxycodone-acetaminophen 1.5 tab PO Q6H PRN PRN 08/29/21 [History Last Taken Unknown] Allergy/AdvReac Type Severity Reaction Status Date / Time Penicillins Allergy Rash Verified 08/29/21 14:48 adhesive tape AdvReac Sensitivity, Verified 08/29/21 14:48 Redness, Sore Surgical History Hx of breast implant Hx of cystoscopy Hx of hysterectomy, total Hx of resection of small bowel S/P hysterectomy Social History household members: spouse Smoking Status: Never smoker substance use type: does not use ROS Constitutional Constitutional: Reports systems reviewed and no addt'l complaints, except as documented Eyes Eyes: Reports systems reviewed and no addt'l complaints, except as documented ENT HEENT: Reports systems reviewed and no addt'l complaints, except as documented Cardiovascular Cardiovascular: Reports systems reviewed and no addt'l complaints, except as documented Respiratory/Chest Respiratory/Chest: Reports systems reviewed and no addt'l complaints, except as documented Gastrointestinal Gastrointestinal: Reports abdominal pain and nausea Genitourinary Genitourinary: Reports flank pain Musculoskeletal Musculoskeletal: Reports systems reviewed and no addt'l complaints, except as documented Integumentary Integumentary: Reports systems reviewed and no addt'l complaints, except as documented Neurologic Neurologic: Reports systems reviewed and no addt'l complaints, except as documented Psychiatric Psychiatric: Reports systems reviewed and no addt'l complaints, except as documented Vital Signs Vital Signs Vital Signs: 08/29/21 14:22 08/29/21 16:19 08/29/21 17:14 Temperature 97.6 F L 98 F 98.2 F Temperature Source Temporal Temporal Oral Pulse Rate 64 73 76 Pulse Strength Respiratory Rate 16 16 18 Respiratory Effort Respiratory Depth Respiratory Pattern Blood Pressure 152/61 H 147/71 H 143/81 H Blood Pressure Mean 91 96 101 Blood Pressure Source Monitor Blood Pressure Position Semi-Fowlers Blood Pressure Location Right Forearm Pulse Ox 98 98 95 Oxygen Delivery Method Room Air Room Air Room Air 08/29/21 17:44 08/29/21 22:00 08/29/21 23:00 Temperature 98.4 F Temperature Source Oral Pulse Rate 64 Pulse Strength Normal (2+) Respiratory Rate 16 Respiratory Effort Normal Respiratory Depth Normal Respiratory Pattern Normal Blood Pressure 100/66 Blood Pressure Mean 77 Blood Pressure Source Monitor Blood Pressure Position Semi-Fowlers Blood Pressure Location Right Forearm Pulse Ox 95 Oxygen Delivery Method Room Air Room Air 08/29/21 23:11 08/30/21 05:00 Temperature 97.8 F Temperature Source Oral Pulse Rate 78 Pulse Strength Respiratory Rate 16 16 Respiratory Effort Normal Normal Respiratory Depth Respiratory Pattern Blood Pressure 131/92 H Blood Pressure Mean 105 Blood Pressure Source Monitor Blood Pressure Position Semi-Fowlers Blood Pressure Location Right Forearm Pulse Ox Oxygen Delivery Method Room Air Room Air Weight Weight: 123.7 kg Body Mass Index (BMI) 42.7 Physical Exam Const alert, oriented x3 and no apparent distress HEENT normocephalic, hearing grossly normal bilaterally and external ears normal Eyes conjunctivae normal and no scleral icterus General Eye: normal appearance of both eyes Neck supple General: normal visual inspection and trachea midline Lymph Lymphatic: no lymphedema noted Chest inspection of chest normal Chest: symmetrical chest wall rise Resp normal respiratory effort, normal air movement, no retractions and no use of accessory muscles Cardio regular rate and regular rhythm GI soft to palpation, non-tender and non-distended no CVA tenderness Back/Spine no CVA tenderness Extremity normal to inspection Skin no rashes or lesions noted, no wounds, skin turgor normal, no jaundice, no petechiae and no mottling Neuro oriented x3, CN's II-XII intact bilaterally and moves all extremities Psych mental status grossly normal and thought process normal Results Lab / Micro Data Result Diagrams: 08/30/21 05:15 08/30/21 05:15 Labs: Laboratory Results - last 24 hr 08/29/21 14:50: WBC 11.8 H, RBC 4.90, Hgb 13.9, Hct 42.7, MCV 87.1, MCH 28.4, MCHC 32.6, RDW Std Deviation 40.6, RDW Coeff of Gerald 12.9, Plt Count 179, MPV 12.3 H, Immature Gran % (Auto) 0.800, Neut % (Auto) 70.7 H, Lymph % (Auto) 18.8 L, Tillman % (Auto) 7.7, Eos % (Auto) 1.4, Baso % (Auto) 0.6, Absolute Neuts (auto) 8.3 H, Absolute Lymphs (auto) 2.21, Nucleated RBC % 0 08/29/21 14:50: Sodium 139, Potassium 3.1 L, Chloride 105, Carbon Dioxide 28.0, Anion Gap 6, BUN 21 H, Creatinine 1.01, Estim Creat Clear Calc 61.92, Est GFR (MDRD) Af Amer 73, Est GFR (MDRD) Non-Af 61, BUN/Creatinine Ratio 20.8 H, Glucose 180 H, Calcium 8.9 08/29/21 15:55: Urine Color Magali, Urine Clarity Clear, Urine pH 5.0, Ur Specific [place] 1.015, Urine Protein 30 H, Urine Glucose (UA) 250 H, Urine Ketones 50 H, Urine Occult Blood 250 H, Urine Nitrite Positive H, Urine Bilirubin 3 H, Urine Urobilinogen 4 H, Ur Leukocyte Esterase 100 H, Urine RBC 50-100 SEEN, Urine WBC 10-25 SEEN, Ur Squamous Epith Cells 0-5 SEEN, Urine Bacteria 1+, Hyaline Casts 0-5 SEEN, Fine Granular Casts 0-5 SEEN, Urine Mucus 0 SEEN 08/29/21 18:01: POC Glucose 157 H 08/30/21 05:15: WBC 7.2, RBC 4.42, Hgb 12.4, Hct 38.1, MCV 86.2, MCH 28.1, MCHC 32.5, RDW Std Deviation 40.0, RDW Coeff of Gerald 12.9, Plt Count 167, MPV 12.2 H, Immature Gran % (Auto) 0.400, Neut % (Auto) 43.8 L, Lymph % (Auto) 42.4 H, Tillman % (Auto) 7.8, Eos % (Auto) 4.9, Baso % (Auto) 0.7, Absolute Neuts (auto) 3.2, Absolute Lymphs (auto) 3.05, Nucleated RBC % 0 08/30/21 05:15: Sodium 139, Potassium 3.2 L, Chloride 106, Carbon Dioxide 28.0, Anion Gap 5, BUN 20 H, Creatinine 0.60, Estim Creat Clear Calc 104.24, Est GFR (MDRD) Af Amer 133, Est GFR (MDRD) Non-Af 110, BUN/Creatinine Ratio 33.1 H, Glucose 133 H, Calcium 8.5 Radiology Impression Abdomen/Pelvis CT 08/29/21 15:26 IMPRESSION: 1. New mild right hydronephrosis. 2 mm mid right ureter calculus, new. 2. Left ureteric stent. Resolution of left hydronephrosis. Electronically Signed: Jevon Bass MD ([place]) at 15:56 EDT Reading Location ID and State: [facility] / [place] , Service support , Assessment & Plan Assessment/Plan (1) Hydronephrosis concurrent with and due to calculi of kidney and ureter: (2) Bilateral renal stones: (3) Hydronephrosis: PLAN: feels like passed the stone last night no pain would like to eat and be discharged for removal of stent today.
[2021-08-30] MEDS: Phenazopyridine 95 MG Tablet 190 MG PO (08:25)
== END 2021-08-30 09:45 | disposition home or self-care (01) ==
LOC: ED 16:19 → MS3 16:49
PROVIDERS: Admitting Provider Urology; Emergency Provider Emergency Medicine; PCP Family Medicine; Visit Provider Urology
DX: N13.2 Hydronephrosis with renal and ureteral calculous obstruction (principal); E11.9 Type 2 diabetes mellitus without complications; I10 Essential (primary) hypertension; E78.5 Hyperlipidemia, unspecified; R11.0 Nausea; Z79.84 Long term (current) use of oral hypoglycemic drugs; M19.90 Unspecified osteoarthritis, unspecified site; K76.0 Fatty (change of) liver, not elsewhere classified; Z79.899 Other long term (current) drug therapy
CPT/HCPCS: 36415; 74176; 80048; 81001; 82962; 85025; 87086; 96361; 96365; 96366; 96375; 96376; 99218; 99284; J7030; J7120; A4216; G0378; J2405

== ENCOUNTER → 2022-10-09 | Outpatient (CLI) | payer OTHER, SELFPAY ==
--- NOTE | 2022-10-09 13:21 | CT_ITS ---
INDICATION: FLANK PAIN EXAMINATION: CT ABDOMEN AND PELVIS WITHOUT CONTRAST - CT Abdomen And Pelvis W/O Contrast Injection TECHNIQUE: Helically acquired images were obtained of the abdomen and pelvis without oral or IV contrast. A radiation dose optimization technique was used for this scan. IV Contrast dosage and agent: None. Oral contrast: None. RADIATION DOSAGE (If Supplied By Facility): CTDIvol = ( 22.51 ) mGy, DLP = ( 1203.50 ) mGycm COMPARISON: FINDINGS: LOWER CHEST: Lung bases are clear. No cardiomegaly or pericardial effusion. LIVER: Homogeneous. No focal mass. GALLBLADDER AND BILIARY TREE: Status post cholecystectomy.. No intra- or extrahepatic biliary ductal dilation. PANCREAS: No focal cystic or solid mass. SPLEEN: Normal size without focal cystic or solid mass. ADRENAL GLANDS: No nodules. KIDNEYS AND URETERS: Nonobstructing 4 mm calculus anterior midpole left kidney nonobstructing 3 mm calculus seen lower pole left kidney nonobstructing 3 mm calculus anterior lower pole left kidney. Moderate left and mild right parapelvic cyst formation less likely hydronephrosis. PERITONEUM: No ascites or free air. No other fluid collection. BOWEL: Surgical suture line is seen in the distal sigmoid colon likely related to prior colonic resection. No evidence of acute appendicitis. No stomach or bowel distension. No focal inflammatory change. LYMPH NODES: No enlarged mesenteric or retroperitoneal lymph nodes. VESSELS: Aorta is non-dilated. URINARY BLADDER: Unremarkable. REPRODUCTIVE ORGANS: Status post hysterectomy versus atrophic uterus. ABDOMINAL WALL: No discrete abdominal or pelvic wall hernia. BONES: No lytic or blastic abnormality. CT/Abdomen/Pelvis without Cont IMPRESSION: Nephrolithiasis on left. Bilateral parapelvic cyst formation less likely hydronephrosis. Status post cholecystectomy. Atrophic uterus versus hysterectomy. Probable sigmoid colon resection. Electronically Signed: Vijay To MD, JANELL at 21:20 EDT Reading Location ID and State: [facility] / [place] Tel , Service support ,
== END | disposition home or self-care (01) ==
PROVIDERS: PCP Family Medicine; Referring Provider Urology; Visit Provider Urology
DX: R10.9 Unspecified abdominal pain (principal); N20.2 Calculus of kidney with calculus of ureter
CPT/HCPCS: 74176